=== PATIENT | male | born 1975 | race African-American/Black ===

== ENCOUNTER 2023-11-15 18:13 | Observation (INO) ==
[2023-11-15 19:23] LABS: ABS Lymphocytes 1.3 10^3/uL (1.0-4.8); ABS Monocytes 1.2 10^3/uL (0.0-1.1); ABS Neutrophils 9.3 10^3/uL (1.5-7.6); ABS Nucleated RBC 0.01 10^3/ul; Eosinophil % 0.4 %; Hematocrit 42.7 % (38-53); Hemoglobin 14.2 g/dL (13.2-16.3); Lymphocyte % 10.9 %; Mean Corpuscular Hemoglobin 26.3 pg (27-33); Mean Corpuscular Hgb Conc 33.1 g/dL (31-36); Mean Corpuscular Volume 79.5 fL (80-97); Mean Platelet Volume 8.3 fL (7.5-11.2); Nucleated Red Blood Cells % 0.1 %/100WBC (0.0-0.8); Platelet Count 317 10^3/uL (150-450); Red Blood Count 5.37 10^6/uL (4.06-5.63); Red Cell Distribution Width 15.5 % (12-17); White Blood Count 11.9 10^3/uL (3.6-10.2)
[2023-11-15] MEDS: Ondansetron 4 mg VIAL 2 MG/ML 2 ml VIAL IV ONE (19:46)
[2023-11-15] MEDS: Lactated Ringers 1000 ml BAG 1,000 ML IV ONE (19:46)
[2023-11-15 20:43] LABS: ALT 15 U/L (7-52); Albumin 4.7 g/dL (3.2-5.2); Albumin/Globulin Ratio 1.7 (1-3); Alkaline Phosphatase 67 U/L (35-149); Anion Gap 5 mmol/L (2-16); Blood Urea Nitrogen 18 mg/dL (6-24); C Reactive Protein 1.56 mg/L (<8.01); CO2 Carbon Dioxide 27 mmol/L (22-32); Calcium 12.7 mg/dL (8.6-10.3); Chloride 105 mmol/L (101-111); Creatinine, Serum 1.32 mg/dL (0.67-1.17); Globulin 2.7 g/dL (2-4); Glucose 81 mg/dL (70-100); Lipase 201 U/L (11.0-82.0); Sodium 137 mmol/L (135-145); Total Bilirubin 0.6 mg/dL (0.2-1.0); Total Protein 7.4 g/dL (6.4-8.9); eGFR CKD-EPI 67.4 (>60)
[2023-11-15 22:22] LABS: Potassium Redraw 4.2 mmol/L (3.5-5.0)
[2023-11-15] MEDS: NS 0.9% 1000 ml BAG 1,000 ML IV SCH (23:03)
[2023-11-15 23:16] LABS: Urine Appearance Clear; Urine Bilirubin Negative (Negative); Urine Blood 2+ (Negative); Urine Color Light-Yellow; Urine Glucose Negative (Negative); Urine Ketones Trace (Negative); Urine Nitrite Negative (Negative); Urine Protein Trace (Negative); Urine Specific Gravity 1.024 (1.002-1.030); Urine Urobilinogen Negative (Negative)
[2023-11-15 23:28] LABS: Urine Bacteria Absent /HPF (Absent); Urine Red Blood Cell 3+(>10/hpf) /HPF (0-Trace); Urine Squamous Epithelial Cell Present /HPF (Absent); Urine White Blood Cell 3+(>20/hpf) /HPF (0-Trace)
[2023-11-16] MEDS: cefTRIAXone 1 gm/50 mL D5W 1 GM/50 ML BAG IV SCH (00:49)
[2023-11-16] MEDS ORDERED: Lactated Ringers 1000 ml BAG 1,000 ML IV SCH ×2 (01:00→12:00)
[2023-11-16] MEDS: NS 0.9% 1000 ml BAG 1,000 ML IV SCH (01:05)
[2023-11-16] MEDS ORDERED: Morphine 2 MG/ML SYRINGE IV PRN (06:15)
[2023-11-16 06:55] LABS: ABS Basophils 0.1 10^3/uL (0.0-0.1); ABS Eosinophils 0.1 10^3/uL (0.0-0.5); ABS Lymphocytes 2.6 10^3/uL (1.0-4.8); ABS Monocytes 0.8 10^3/uL (0.0-1.1); ABS Neutrophils 4.5 10^3/uL (1.5-7.6); ABS Nucleated RBC 0.01 10^3/ul; Eosinophil % 0.7 %; Hematocrit 36.7 % (38-53); Hemoglobin 11.9 g/dL (13.2-16.3); Lymphocyte % 32.5 %; Mean Corpuscular Hemoglobin 25.9 pg (27-33); Mean Corpuscular Hgb Conc 32.5 g/dL (31-36); Mean Corpuscular Volume 79.7 fL (80-97); Mean Platelet Volume 9.4 fL (7.5-11.2); Nucleated Red Blood Cells % 0.1 %/100WBC (0.0-0.8); Platelet Count 289 10^3/uL (150-450); Red Blood Count 4.61 10^6/uL (4.06-5.63); Red Cell Distribution Width 15.7 % (12-17); White Blood Count 8.1 10^3/uL (3.6-10.2)
[2023-11-16 09:37] LABS: Blood Urea Nitrogen 19 mg/dL (6-24); CO2 Carbon Dioxide 32 mmol/L (22-32); Calcium 11.3 mg/dL (8.6-10.3); Chloride 106 mmol/L (101-111); Creatinine, Serum 1.35 mg/dL (0.67-1.17); Glucose 86 mg/dL (70-100); Sodium 138 mmol/L (135-145); eGFR CKD-EPI 65.6 (>60)
[2023-11-16 09:38] VITALS: BP 124/76
[2023-11-16] MEDS ORDERED: Buffered Lidocaine 1% SYRIN 1 ml INTRADERM ONE (11:31)
[2023-11-16] MEDS ORDERED: Scopolamine 1 mg/72hr PATCH TRANSDERM ONE (11:31)
[2023-11-16] MEDS ORDERED: Naloxone 0.4 mg VIAL 0.4 mg/ml 1 ml VIAL IV PRN (11:32)
[2023-11-16] MEDS ORDERED: Metoclopramide 5 MG/ML VIAL (10 mg) IV PRN (11:32)
[2023-11-16] MEDS ORDERED: Ondansetron 4 mg VIAL 2 MG/ML 2 ml VIAL IV PRN (11:32)
[2023-11-16] MEDS ORDERED: fentaNYL 100 mcg/2 ml 50 MCG/ML VIAL IV PRN (11:32)
== END 2023-11-16 10:30 | disposition left against medical advice (07) ==
LOC: ED 18:13 → EDHOLD 18:13 → SUATTDRO 11-16 00:12 → MED 11-16 04:01
PROVIDERS: ADMIT Internal Medicine; ATTEND Hospitalist